=== PATIENT | female | born 1950 | race Caucasian/White ===

== ENCOUNTER 2016-10-08 23:49 | Emergency (ER) | payer MEDICARE, MEDICAID ==
[~2016-10-08 23:49] MED LIST: DIAZ5 PO; IPRAAER IN; LORTA5 PO; OGEN.625 PO; PAXI40TA PO; PROP40TA27 PO; SOMA350T PO; XANA1TAB6 PO; ZOLP10TA3 PO
[2016-10-08 23:53] VITALS: BP 171/89; PULSE 65; RESP 16; TEMP 97.3; O2SAT 100
[2016-10-09] MEDS ORDERED: AMBI10TA PO (01:42)
[2016-10-09] MEDS ORDERED: XANA1TAB2 PO (01:42)
[2016-10-09] MEDS ORDERED: PROP60 PO (01:44)
[2016-10-09] MEDS ORDERED: ZOLO50TA PO (01:45)
[2016-10-09] MEDS ORDERED: BUPIVACAINE HCL PF 0.5% 30 ML VIAL INFIL ONE (01:45)
--- NOTE | 2016-10-09 02:02 | PD ---
HPI Chief Complaint: Fall Time Seen by Provider: 01:50 Travel History International Travel<30 days: No Contact w/Intl Traveler<30days: No Traveled to known affect area: No History of Present Illness HPI 66-year-old left hand dominant white female presents to emergency department accompanied by her for evaluation of left hand pain. The patient had taken her Xanax this evening along with her Ambien and several alcoholic Beverages. The patient had gotten up this evening to go to the bathroom and apparently had fallen. This had occurred sometime around 10:30 this evening. The patient is complaining of pain and deformity to her ring and middle finger. She denies injury to her head, neck or back. No nausea vomiting. Pain is mild to moderate no sensory changes. PFSH Past Medical History Arthritis: Yes Anxiety: Yes Depression: Yes Heart Rhythm Problems: Yes (TACHYCARDIA ) Cancer: No Diabetes: No Diminished Hearing: No Endocrine: No Genitourinary: No Hepatitis: No Hiatal Hernia: No Hypertension: No Immune Disorder: Yes (fibromyalgia) Musculoskeletal: Yes (arthritis) Neurologic: No Psychiatric: Yes (bi-polar) Reproductive: No Respiratory: No Thyroid Disease: No : 3 Para: 3 Past Surgical History Abdominal Surgery: Yes (resection) Cardiac Surgery: No Section: Yes Eye Surgery: Yes (cataract surgery both eyes) Gynecologic Surgery: Yes ( hysterectomy partial then full) Hysterectomy: Yes Tonsillectomy: Yes Other Surgery: Yes (MULTIPLE UPPER EXTREMITY SURGERIES) Social History Alcohol Use: Yes Tobacco Use: No Substance Use: No Allergies-Medications (Allergen,Severity, Reaction): Coded Allergies: Penicillin (Verified Allergy, Severe, HIVES, SWELLING OF THROAT, 10/09/16) Erythromycin (Verified Allergy, Intermediate, HEVES AND SWELLING OF THROAT , 10/09/16) Sulfa (Verified Allergy, Mild, HIVES AND NAUSEA, 10/09/16) Reported Meds & Prescriptions Reported Meds & Active Scripts Active Lortab (Hydrocodone-Acetaminophen) 5-325 Mg Tab 1 Tab PO Q6H PRN Reported Zoloft (Sertraline HCl) 50 Mg Tab 50 Mg PO DAILY Inderal LA 24 HR (Propranolol HCl) 60 Mg Cap 40 Mg PO DAILY Ambien (Zolpidem Tartrate) 10 Mg Tab 10 Mg PO HS PRN Xanax (Alprazolam) 1 Mg Tab 1 Mg PO Q6H PRN Review of Systems Except as stated in HPI: all other systems reviewed are Neg Physical Exam Narrative GENERAL: This is a well-nourished, well-developed patient, in no apparent distress. The patient appears under the influence of medications and or alcohol. She is accompanied by her who appears sober. SKIN: No rashes, ecchymoses or lesions. Warm and dry. HEAD: Atraumatic. Normocephalic. EYES: PERRL, EOMI, no discharge or injection. No scleral icterus. EARS: Clear NOSE: Nasal turbinates appear normal. THROAT: Mucosa pink and moist. Airway patent. NECK: Trachea midline. supple, moves head freely. LUNGS: Clear to auscultation. CV: Regular in rhythm. ABDOMEN: Soft nontender. EXT: No clubbing cyanosis or edema. Examination of the left hand reveals obvious deformities of the PIP joints of the ring and middle finger. No MCP or DIP joint injury. She has inability to bend the fingers at these joints. She has intact gross sensation. Good Refill. Remainder of the hand is unremarkable. There is no pain in the for hand, wrist, elbow or shoulder. The right upper extremity as well as lower extremities are unremarkable for acute trauma. Data Data Last Documented VS Vital Signs Date Time Temp Pulse Resp B/P Pulse Ox O2 Delivery O2 Flow Rate FiO2 10/08/16 23:53 97.3 65 16 171/89 100 Room Air Orders Hand, Limited (2vws) (10/09/16 01:43) Hand, Complete (Qvk1hab) (10/09/16 01:43) Ice/Cold Pack (10/09/16 01:43) Bupivacaine Pf 0.5% Inj (Marcaine Pf 0.5 (10/09/16 01:45) Splint Or Brace Apply/Monitor (10/09/16 02:04) MDM Medical Decision Making Medical Screen Exam Complete: Yes Emergency Medical Condition: Yes Medical Record Reviewed: Yes Interpretation(s) Left hand limited: Positive fracture the fifth metacarpal with dislocations of the ring and middle finger PIP. No other obvious fracture Left hand complete: This is a post reduction set of images. The fractures once again visualized. There is been a anatomical reduction of the ring and middle finger PIP dislocations. There are no obvious fractures seen post reduction. Differential Diagnosis MDM: High Differential diagnoses: Fracture, sprain, strain, dislocation, contusion, neurovascular injury Narrative Course Patient's given digital blocks to her left ring and middle finger with Marcaine 0.5% Patient's initial limited x-ray reveals a fracture the fifth metacarpal and dislocations of the ring finger and middle finger PIP joints. Patient is placed in a volar splint. Sling. This is left hand fifth metacarpal fracture, dislocations of the left ring and middle finger with reduction Procedures Procedure Narrative Digital block 2 cc to the left ring finger as well as 2 cc to the left middle finger with 0.5% Marcaine. Diagnosis Primary Impression: left fifth metacarpal fracture Additional Impression: left ring and middle finger PIP dislocations Patient Instructions: General Instructions Additional Instructions: Rest. Elevation. Ice for the next few days. Splint. Keep clean and dry. Lortab. Follow-up with an orthopedic hand surgeon within the next 3-5 days. Return to the ER for any problems. Med/Other Pt SpecificInfo: Prescription(s) given, Orthopedic Instructions Scripts Hydrocodone-Acetaminophen (Lortab)5-325 Mg Tab1 Tab PO Q6H PRN (PAIN) #20 TAB Prov:Shai Gleason MD 10/09/16 Disposition: 01 DISCHARGE HOME Condition: Stable Wang Richter Oct 09, 2016 02:02
[2016-10-09] MEDS ORDERED: HYDR-3533 PO (02:04)
--- NOTE | 2016-10-09 02:24 | RADRPT ---
EXAM DATE/TIME: 10/09/2016 01:41 [facility] COMPARISON: No previous studies available for comparison. INDICATIONS : Patient fell on hand. MEDICAL HISTORY : None. SURGICAL HISTORY : None. ENCOUNTER: Initial ACUITY: 1 day PAIN SCORE: 6/10 LOCATION: Fingers. FINDINGS: There is an oblique nondisplaced fracture through the shaft of the fifth metacarpal with evidence of remote fracture of the fifth metacarpal shaft also present. There is dislocation dorsally and mediall y of the third and fourth digits at the PIP joint. CONCLUSION: Third and fourth PIP joint level dislocations. Fifth metacarpal fracture. Aaron Carrington MD on October 09, 2016 at 2:21 Board Certified Radiologist. This report was verified electronically.
--- NOTE | 2016-10-09 02:30 | RADRPT ---
EXAM DATE/TIME: 10/09/2016 01:51 [facility] COMPARISON: HAND LEFT LIMITED (2VWS), October 09, 2016, 1:41. INDICATIONS : Post reduction. Patient fell on hand. MEDICAL HISTORY : None. SURGICAL HISTORY : None. ENCOUNTER: Initial ACUITY: 1 day PAIN SCORE: 0/10 LOCATION: Fingers. FINDINGS: Fifth metacarpal oblique fracture identified. There is interval reduction of the third and fourth dig it PIP joint dislocations. No acute fracture fragments are noted at that level. CONCLUSION: Fifth metacarpal fracture. Aaron Carrington MD on October 09, 2016 at 2:28 Board Certified Radiologist. This report was verified electronically.
[2016-10-23] MEDS ORDERED: OGESTAB PO (11:56)
[2016-10-23] MEDS ORDERED: GABA300C5 PO (11:56)
[2016-10-28] MEDS ORDERED: ESTR3TAB PO (06:46)
[2016-10-28] MEDS ORDERED: TEMA15CA PO (07:31)
[2016-10-28] MEDS ORDERED: DULO1CAP2 PO (07:31)
[2016-10-28] MEDS ORDERED: CIPR250T52 PO (09:38)
[2016-10-28] MEDS ORDERED: NORC5TAB PO (09:38)
== END 2016-10-09 03:31 | disposition home or self-care (01) ==
LOC: NEPD 23:49
DX: S62.307A Unspecified fracture of fifth metacarpal bone, left hand, initial encounter for closed fracture (principal); S63.283A Dislocation of proximal interphalangeal joint of left middle finger, initial encounter; S63.285A Dislocation of proximal interphalangeal joint of left ring finger, initial encounter; M13.80 Other specified arthritis, unspecified site; F41.9 Anxiety disorder, unspecified; M79.7 Fibromyalgia; F31.9 Bipolar disorder, unspecified; W18.30XA Fall on same level, unspecified, initial encounter; Y92.002 Bathroom of unspecified non-institutional (private) residence as the place of occurrence of the external cause
CPT/HCPCS: 26770; 29125; 73120; 73130

== ENCOUNTER → 2016-10-28 | Day surgery (SDC) | payer MEDICARE ==
[~2016-10-28] VITALS: Ht 157.5 cm; Wt 52.2 kg
[~2016-10-28] MED LIST changes: +*MEPERIDINE 25 MG INJ VIAL PERIprocedural Use ONLY ONE; +ACETAMINOPHEN/HYDROcodone 325 MG/5 MG TAB ONE; +AMBI10TA PO; +BUPIVACAINE HCL PF 0.5% 30 ML VIAL ONE; +CHLORHEXIDINE GLUCONATE 2 % 1 PACK (2 CLOTHS) TOPICAL PRN; +CIPR250T52 PO; +CIPROFLOXACIN 400 MG PREMIX 200 ML IV SCH; +DEXAMETHASONE SOD PHOS 4 MG/ML VIAL ONE; -DIAZ5 PO; +DULO1CAP2 PO; +ESTR3TAB PO; +FAMOTIDINE 20 MG/2 ML VIAL ONE; +GABA300C5 PO; +HYDR-3533 PO; +INSULIN HUMAN REGULAR 1,000 UNITS/10 ML VIAL SQ PRN; -IPRAAER IN; +LACTATED RINGER'S 1000 ML IV PRN; +LIDOCAINE HCL 2% 50 ML VIAL ONE; -LORTA5 PO; +METOCLOPRAMIDE HCL 10 MG/2 ML VIAL ONE; +METOPROLOL TARTRATE 25 MG TAB PO PRN; +MIDAZOLAM HCL 2 MG/2 ML VIAL ONE; +MORPHINE SULFATE 4 MG/ML INJ ONE; +NEOMYCIN/POLYMYXIN 1 ML G.U. IRRIGANT IR ONE; +NEOMYCIN/POLYMYXIN 1 ML G.U. IRRIGANT ONE; +NORC5TAB PO; -OGEN.625 PO; +OGESTAB PO; +ONDANSETRON HCL 4 MG/2 ML VIAL IV PUSH ONE; -PAXI40TA PO; +POVIDONE IODINE 5% (ANTISEPSIS KIT) 4 APPLICATIONS EACH NARE PRN; -PROP40TA27 PO; +PROP60 PO; +PROPOFOL 200 MG/20 ML AMP IV ONE; +SODIUM CHLORID 0.9% 500 ML IV PRN; -SOMA350T PO; +TEMA15CA PO; +VANCOMYCIN 1,000 MG/NS 250ML (for <70 kg) IV SCH; +XANA1TAB2 PO; -XANA1TAB6 PO; +ZOLO50TA PO; -ZOLP10TA3 PO
[2016-10-28 06:40] VITALS: BP 146/83; PULSE 53; RESP 16; TEMP 97.5; O2SAT 100
--- NOTE | 2016-10-28 09:01 | EKG ---
Date Performed: 10/28/2016 Time Performed: 07:06:47 PTAGE: 66 years EKG: SINUS BRADYCARDIA LEFT POSTERIOR FASCICULAR BLOCK ABNORMAL ECG PREVIOUS TRACING : 07/28/2013 10.17 DOCTOR: Shai Hernandez Interpretating Date/Time 10/28/2016 09:00:45
[2016-10-28 09:40] VITALS: PULSE 63
--- NOTE | 2016-10-28 10:50 | MP ---
cc: IGOR CAVANAUGH III, M.D. DATE OF SURGERY: 10/28/2016 PREOPERATIVE DIAGNOSIS Left fifth metacarpal fracture. POSTOPERATIVE DIAGNOSIS Left fifth metacarpal fracture. PROCEDURE 1. Left fifth metacarpal open reduction, internal fixation. 2. Use of image intensifier. SURGEON Igor Cavanaugh III, MD DETAILS OF PROCEDURE The patient was brought to the operating room and placed supine on the operating table. After the correct site and side of surgery were verified by members of each team in the room multiple times including the patient and myself and after adequate preoperative markings and preoperative written consent were verified by everyone and after an adequate preoperative timeout was performed to everyone's satisfaction and after adequate general anesthesia was achieved, the left upper extremity was prepped and draped in a traditional sterile surgical fashion. Using a mini C-arm the site of the intended procedure was verified. A 50/50 mixture of 2% plain lidocaine and 0.5% plain Marcaine was infiltrated into the skin and subcutaneous tissues and deep between the metacarpals. The limb was exsanguinated with a gentle Nelson wrap. A highly placed well-padded axillary tourniquet inflated to 200 mmHg for a total of 45 minutes. A longitudinally oriented incision dorsally was made overlying the fifth metacarpal, carried down through skin and subcutaneous tissue. Blunt dissection was performed. Bipolar electrocautery was used as needed. The extensor tendons were retracted in opposite directions. The periosteum was incised sharply and elevated off the dorsal ulnar side of the metacarpal. The fracture was distracted. Organized clot was removed. Thorough irrigation with saline was performed. A compression screw was placed across the fracture and then 90 degrees to that a longitudinally oriented stainless steel plate from the [employer] modular handset was placed with five screws in the usual fashion. The screws were tailored to length and positioned using the mini C-arm as a guide. Passive range of motion examination was performed and was found to be full and unrestricted. There was no evidence of any malangulation or malrotation. Thorough irrigation was performed again. The periosteum was closed over the hardware. The deep subcutaneous tissue was re-approximated using 4-0 Vicryl sutures. Thorough irrigation was performed again. The skin edges were re-approximated using running 4-0 nylon suture. The hand and arm were thoroughly cleansed and dried. Final x-rays were obtained. Betadine and Adaptic dressings were applied atop the wound followed by a well-padded, well-molded volar immobilizing short-arm splint. The axillary tourniquet was released. Prior to the placement of any dressing the hand and all the fingers became immediately soft, pink and warm and had brisk capillary refill of less than two seconds. The patient was awakened from anesthesia and transported to the post-anesthesia care unit awake and in stable condition. The patient tolerated the procedure well. MD MELONY Quintanilla III/ANNA /9:47 AM /10:16 AM
[2016-10-28 11:00] VITALS: BP 115/80; PULSE 62; RESP 18; TEMP 97.1; O2SAT 95
== END | disposition home or self-care (01) ==
LOC: PHSDC 06:14
PROVIDERS: ATTEND Orthopaedic Surgery Hand Surgery
DX: S62.337A Displaced fracture of neck of fifth metacarpal bone, left hand, initial encounter for closed fracture (principal); I48.91 Unspecified atrial fibrillation; Z01.810 Encounter for preprocedural cardiovascular examination
CPT/HCPCS: 01830; 26615; 76000; 93005; C1713; J1100; J2175; J2250; J2270; J2405; J2765; J3010; J3370; J7050; J7120

== ENCOUNTER → 2017-03-26 | Outpatient (CLI) | payer MEDICARE ==
[~2017-03-26] MED LIST changes: -*MEPERIDINE 25 MG INJ VIAL PERIprocedural Use ONLY ONE; -ACETAMINOPHEN/HYDROcodone 325 MG/5 MG TAB ONE; -AMBI10TA PO; -BUPIVACAINE HCL PF 0.5% 30 ML VIAL ONE; -CHLORHEXIDINE GLUCONATE 2 % 1 PACK (2 CLOTHS) TOPICAL PRN; -CIPR250T52 PO; -CIPROFLOXACIN 400 MG PREMIX 200 ML IV SCH; -DEXAMETHASONE SOD PHOS 4 MG/ML VIAL ONE; -FAMOTIDINE 20 MG/2 ML VIAL ONE; -HYDR-3533 PO; -INSULIN HUMAN REGULAR 1,000 UNITS/10 ML VIAL SQ PRN; -LACTATED RINGER'S 1000 ML IV PRN; -LIDOCAINE HCL 2% 50 ML VIAL ONE; -METOCLOPRAMIDE HCL 10 MG/2 ML VIAL ONE; -METOPROLOL TARTRATE 25 MG TAB PO PRN; -MIDAZOLAM HCL 2 MG/2 ML VIAL ONE; -MORPHINE SULFATE 4 MG/ML INJ ONE; -NEOMYCIN/POLYMYXIN 1 ML G.U. IRRIGANT IR ONE; -NEOMYCIN/POLYMYXIN 1 ML G.U. IRRIGANT ONE; -NORC5TAB PO; -OGESTAB PO; -ONDANSETRON HCL 4 MG/2 ML VIAL IV PUSH ONE; -POVIDONE IODINE 5% (ANTISEPSIS KIT) 4 APPLICATIONS EACH NARE PRN; -PROPOFOL 200 MG/20 ML AMP IV ONE; -SODIUM CHLORID 0.9% 500 ML IV PRN; -VANCOMYCIN 1,000 MG/NS 250ML (for <70 kg) IV SCH; +ZOLO25TA PO; -ZOLO50TA PO
[2017-03-26 12:47] LABS: INTERNATIONAL NORMALIZED RATIO 1.1 RATIO
[2017-03-26 13:22] LABS: AUTOMATED NEUTROPHIL # 5.1 TH/MM3 (1.8-7.7); BASOPHIL # 0.1 TH/MM3 (0-0.2); BASOPHIL % 0.8 % (0.0-2.0); EOSINOPHIL # 0.2 TH/MM3 (0-0.4); HEMATOCRIT 39.1 % (35.0-46.0); HEMOGLOBIN 13.5 GM/DL (11.6-15.3); LYMPH % 21.2 % (9.0-44.0); LYMPHOCYTE # 1.6 TH/MM3 (1.0-4.8); MEAN CELL VOLUME 100.1 FL (80.0-100.0); MEAN CORPUSCULAR HEMOGLOBIN 34.7 PG (27.0-34.0); MEAN CORPUSCULAR HGB CONC 34.7 % (32.0-36.0); MONOCYTE # 0.7 TH/MM3 (0-0.9); PLATELET COUNT 282 TH/MM3 (150-450); RED CELL DISTRIBUTION WIDTH 13.6 % (11.6-17.2); WHITE BLOOD COUNT 7.7 TH/MM3 (4.0-11.0)
[2017-03-26 13:30] LABS: ALBUMIN 4.2 GM/DL (3.4-5.0); AST (GOT) 28 U/L (15-37); BICARBONATE 29.2 MEQ/L (21.0-32.0); BLOOD UREA NITROGEN 17 MG/DL (7-18); CALCIUM 9.2 MG/DL (8.5-10.1); CHLORIDE 102 MEQ/L (98-107); CREATININE 0.96 MG/DL (0.50-1.00); GLOMERULAR FILTRATION RATE 59 ML/MIN (>89); GLUCOSE,FASTING 113 MG/DL (74-99); SODIUM (NA) 141 MEQ/L (136-145)
[2017-03-26 13:31] LABS: CHOLESTEROL 259 MG/DL (120-200); TRIGLYCERIDES 470 MG/DL (42-150)
[2017-03-26 13:43] LABS: ALKALINE PHOSPHATASE 103 U/L (45-117); ALT (GPT) 34 U/L (10-53); CHOLESTEROL/ HDL RATIO 4.63 RATIO; HDL CHOLESTEROL 55.9 MG/DL (40.0-60.0); TOTAL BILIRUBIN ADULT 0.6 MG/DL (0.2-1.0); TOTAL PROTEIN 7.9 GM/DL (6.4-8.2)
== END ==
LOC: PLAB 10:43
PROVIDERS: ATTEND Family Medicine
DX: Z01.818 Encounter for other preprocedural examination (principal); R53.83 Other fatigue
CPT/HCPCS: 36415; 80053; 80061; 84443; 85025; 85610

== ENCOUNTER → 2017-04-07 | Outpatient (CLI) | payer MEDICARE ==
[2017-04-07 21:54] LABS: HEMOGLOBIN A1C 5.4 % (4.3-6.0)
== END ==
LOC: PLAB 11:45
PROVIDERS: ATTEND Family Medicine
DX: R73.01 Impaired fasting glucose (principal)
CPT/HCPCS: 36415; 83036